=== PATIENT | male | born 1985 | race Two or more races ===

== ENCOUNTER 2018-12-19 14:27 | Emergency (ER) | payer BC ==
[2018-12-19 14:41] VITALS: BP 133/91
--- NOTE | 2018-12-19 15:22 | EDM.PDOC ---
ED HPI GENERAL MEDICAL PROBLEM - General Chief Complaint: Respiratory Problem Stated Complaint: SOB AND COUGH Time Seen by Provider: 12/19/18 14:42 Source of Information: Reports: Patient, RN Notes Reviewed - History of Present Illness INITIAL COMMENTS - FREE TEXT/NARRATIVE: 33-year-old male comes in with cough that is been quite severe for about the past week. He initially became ill about a week ago with cough, fever, chills, headache, body aches, low energy. Now he states the cough has become productive of yellowish-green phlegm. He has had a couple of days off this weekend with no scheduled to go back to work 5:00 tomorrow morning. He has had nasal and sinus congestion as well. The fever is gone. He states with cold air, exertion he gets short of breath. Chest Pain Score (Numeric/FACES): 2 - Related Data Allergies Allergy/AdvReac Type Severity Reaction Status Date / Time No Known Allergies Allergy Verified 12/19/18 14:42 Home Meds: Home Meds Azithromycin [Zithromax] 250 mg PO DAILY #6 tab 12/19/18 [Rx] Past Medical History - Past Health History Medical/Surgical History: Denies Medical/Surgical History Social & Family History - Tobacco Use Smoking Status *Q: Never Smoker Second Hand Smoke Exposure: No - Caffeine Use Caffeine Use: Reports: Energy Drinks - Recreational Drug Use Recreational Drug Use: No ED ROS GENERAL - Review of Systems Review Of Systems: See Below Constitutional: Reports: Fever, Chills (Non-), Night Sweats (Gone) HEENT: Reports: Sinus Problem, Throat Pain (Gone) Respiratory: Reports: Shortness of Breath (Tinea nasal and sinus congestion exertional with the cold air) Cardiovascular: Reports: Chest Pain (With coughing) GI/Abdominal: Denies: Abdominal Pain, Nausea, Vomiting Musculoskeletal: Reports: Other (Also achiness, gone) Skin: Denies: Rash Neurological: Reports: Headache (Gone) ED EXAM, GENERAL - Physical Exam Exam: See Below General Appearance: Alert, No Apparent Distress Eye Exam: Bilateral Eye: PERRL Nose: Normal Inspection Throat/Mouth: Normal Inspection, Normal Oropharynx Head: Atraumatic Neck: Supple Respiratory/Chest: No Respiratory Distress, Lungs Clear, Normal Breath Sounds. No: Rhonchi, Wheezing Cardiovascular: Regular Rate, Rhythm GI/Abdominal: Soft, Non-Tender Extremities: Normal Inspection Neurological: Alert, Oriented, No Motor/Sensory Deficits Skin Exam: Warm, Dry, Normal Color Course - Vital Signs Last Recorded V/S: Last Vital Signs Temp 97.4 F 12/19/18 14:37 Pulse 86 12/19/18 14:37 Resp 12 12/19/18 14:37 BP 133/91 H 12/19/18 14:37 Pulse Ox 98 12/19/18 14:37 - Orders/Labs/Meds Orders: Active Orders 24 hr Category Date Time Status Chest 1V Frontal [CR] Stat Exams 12/19/18 14:59 Taken - Re-Assessments/Exams Free Text/Narrative Re-Assessment/Exam: 12/19/18 18:37 Chest x-ray looked good, discharge instructions as documented. Departure - Departure Time of Disposition: 15:22 Disposition: Home, Self-Care 01 Condition: Fair Clinical Impression: Influenza, Bronchitis - Discharge Information Prescriptions: Azithromycin [Zithromax] 250 mg PO DAILY #6 tab Instructions: Influenza, Adult, Acute Bronchitis, Adult Referrals: PCP,None [Primary Care Provider] - Forms: ED Department Discharge Additional Instructions: A prescription for Zithromax antibiotic has been sent electronic to [facility], you need to go there now to pick this up, they close at 4:00 today. Take that as prescribed, drink plenty of water to maintain hydration, vaporizer or steam as needed, OTC cough medication. Based on your symptoms that started 1 week ago you have had influenza and are now in recovery stage. Your Chest X ray does not show pneumonia. follow up clinic if not much better within 5 to 7 days as expected. - My Orders Last 24 Hours: My Active Orders 12/19/18 14:59 Chest 1V Frontal [CR] Stat - Assessment/Plan Last 24 Hours: My Active Orders 12/19/18 14:59 Chest 1V Frontal [CR] Stat
--- NOTE | 2018-12-20 06:45 | CR ---
Chest: Portable view of the chest was obtained. Comparison: Prior chest x-rays not available. Minimal increased density is seen within the left mid to lower lung. Lungs otherwise are clear. Heart size and mediastinum are normal. Bony structures are grossly intact. Impression: 1. Minimal increased density within the left mid to lower lung either due to atelectasis or minimal area of pneumonia. 2. Portable chest x-ray is otherwise unremarkable. Diagnostic code #3
== END 2018-12-19 16:01 | disposition home or self-care (01) ==
LOC: JD.ED 14:27
DX: J11.1 Influenza due to unidentified influenza virus with other respiratory manifestations (principal); J40 Bronchitis, not specified as acute or chronic
CPT/HCPCS: 71045; 71045-26; 99283

== ENCOUNTER 2022-11-05 06:31 | Emergency (ER) | payer OTHER ==
[2022-11-05] MEDS ORDERED: Metoclopramide 10 MG/2 ML SDV IVPUSH ONE (07:12)
[2022-11-05] MEDS ORDERED: Dextrose 5%-Lactated Ringers 1,000 ML IV SCH (07:15)
[2022-11-05 08:32] LABS: ESTIMATED GFR 89 mL/min (>60)
[2022-11-05 10:20] LABS: CORONAVIRUS COVID-19 NAA NEGATIVE (NEGATIVE)
[2022-11-05 11:54] VITALS: BP 118/85; PULSE 63
[2022-11-05 12:39] LABS: C. TRACHOMATIS BY PCR NOT DETECTED; N. GONORRHOEAE BY PCR NOT DETECTED
== END 2022-11-05 11:55 | disposition home or self-care (01) ==
LOC: EDSEX 06:31 → MERGE 06:31 → JD.ED 06:31
DX: J40 Bronchitis, not specified as acute or chronic (principal); Z20.822 Contact with and (suspected) exposure to COVID-19
CPT/HCPCS: 0241U; 36415; 71045; 71045-26; 80053; 81001; 83735; 85025; 85610; 86140; 87491; 87591; 93005; 96361; 96374; 99284-25; J2765; J7121

== ENCOUNTER 2024-12-22 07:16 | Emergency (ER) | payer OTHER ==
[2024-12-22 08:07] LABS: BASOPHILS PERCENT AUTO 0.6 % (0.0-1.0); EOSINOPHILS PERCENT AUTO 0.2 % (0.0-6.0); HEMATOCRIT 45.2 % (42.0-52.0); HEMOGLOBIN 15.5 gm/dl (14.0-18.0); IMMATURE GRAN ABSOLUTE AUTO 0.02 K/mm3 (0.00-0.05); IMMATURE GRAN PERCENT AUTO 0.4 % (0.0-0.4); LYMPHOCYTES ABSOLUTE AUTO 0.4 K/mm3 (1.0-4.8); LYMPHOCYTES PERCENT AUTO 6.6 % (24.0-44.0); MEAN CORPUSCULAR HEMOGLOBIN 31.1 pg (28.0-32.0); MEAN CORPUSCULAR HGB CONC 34.3 g/dl (32.0-36.0); MEAN CORPUSCULAR VOLUME 90.8 fl (83.0-99.0); MEAN PLATELET VOLUME 10.7 fl (9.4-12.4); MONOCYTES ABSOLUTE AUTO 0.5 K/mm3 (0.0-0.8); MONOCYTES PERCENT AUTO 8.6 % (0.0-8.0); NEUTROPHILS ABSOLUTE AUTO 4.6 K/mm3 (1.8-7.7); NEUTROPHILS PERCENT AUTO 83.6 % (41.0-71.0); PLATELET COUNT,PLT 180 K/mm3 (150-400); RED BLOOD CELL COUNT 4.98 M/mm3 (4.52-5.90); WHITE BLOOD CELL COUNT,WBC 5.45 K/mm3 (3.9-11.3)
[2024-12-22] MEDS: Acetaminophen 325 MG Tab PO ONE (08:07)
[2024-12-22 08:15] LABS: ALANINE AMINOTRANSFERASE,ALT 56 U/L (16-63); ALBUMIN 4.2 g/dl (3.4-5.0); ALKALINE PHOSPHATASE 70 U/L (46-116); ASPARTATE AMNIOTRANSFERASE,AST 35 U/L (15-37); BILIRUBIN TOTAL 0.6 mg/dL (0.2-1.0); BLOOD UREA NITROGEN,BUN 14 mg/dL (7-18); BUN/CREATININE RATIO 10.8 (14-18); CALCIUM 9.5 mg/dL (8.5-10.1); CARBON DIOXIDE,CO2 30 mEq/L (21-32); CHLORIDE,CL 97 mEq/L (98-107); CREATININE 1.3 mg/dL (0.7-1.3); EST CRCL DRUG DOSING (CG) 73.81 mL/min; ESTIMATED GFR 72 mL/min (>60); GLUCOSE RANDOM 99 mg/dL (70-99); LIPASE 23 U/L (16-77); PROTEIN TOTAL,TP 8.4 g/dl (6.4-8.2)
[2024-12-22 08:32] LABS: ANION GAP 13.8 (5-15); POTASSIUM,K 3.8 mEq/L (3.5-5.1); SODIUM,NA 137 mEq/L (136-145); TROPONIN I HIGH SENSITIVITY < 4 pg/mL (<=76)
[2024-12-22 13:09] VITALS: BP 126/62; PULSE 81
== END 2024-12-22 12:16 | disposition home or self-care (01) ==
LOC: JD.ED 07:16
DX: J10.1 Influenza due to other identified influenza virus with other respiratory manifestations (principal)
CPT/HCPCS: 36415; 71046; 80053; 83690; 84484; 85025; 87428; 93005; 99285; A9270; 93010; 99284